=== PATIENT | male | born 1960 | race Caucasian/White ===

== ENCOUNTER → 2017-03-09 | Outpatient (CLI) | payer BC ==
[~2017-03-09] MED LIST: CHOL20009 PO; GLC/500 PO
--- NOTE | 2017-03-09 08:16 | DIAGNOSTIC IMAGING REPORT ---
KUB CLINICAL HISTORY: 56 years-old Male presenting with N20.0 [id number] Enlarged prostate without lower urina. TECHNIQUE: Single supine view of the abdomen was obtained. COMPARISON: 06/03/2016. FINDINGS: Unchanged appearance of the calculus projecting over the lower pole of the left kidney. Allowing for the presence of stool and bowel gas, no additional renal calculus is evident. No calcification along the course of the ureters or bladder. Unchanged distribution of small left pelvic phleboliths. Nonobstructive bowel gas pattern. No gross pneumoperitoneum. Lung bases clear. Degenerative changes of the spine. IMPRESSION: 1. Stable appearance of the left lower pole renal calculus. Electronically signed by: Claudio Garcia M.D. 03/09/2017 8:15 AM Dictated Date/Time: 03/09/2017 8:14 AM
== END | disposition home or self-care (01) ==
LOC: C.RAD 07:51
PROVIDERS: ATTEND Urology
DX: N40.0 Benign prostatic hyperplasia without lower urinary tract symptoms (principal); N20.0 Calculus of kidney

== ENCOUNTER 2019-12-04 08:19 | Observation (INO) ==
--- NOTE | 2019-11-30 10:39 | Anesthesiology Consultation ---
Date of Service November 30, 2019 Assessment & Plan (1) Encounter for pre-operative examination: COVID Status: As of 11/29 nurse assessment, patient denies travel to endemic area, known exposure/sick contacts, or symptoms of COVID19. Preoperative COVID19 testing completed on 11/28, results pending. S/P cyto/laser litho 11/06/19 -- iGel #5, no complications note on record. Chart Review Chart Review: Acceptable Risk for Surgery and Patient NOT seen in Pre Admission Testing History Surgery Operation Date: 12/04/19 10:15 Proposed Procedures p Cystoscopy, Left Retrograde Pyelogram, Ureteral Stent Removal, Possible Ureteroscopy, Biopsy - Diego Jordan, DO Height/Weight Height: 5 ft 7 in Weight: 124.738 kg Allergies Allergy/AdvReac Type Severity Reaction Status Date / Time No Known Allergies Allergy Verified 11/30/19 07:02 Medications Home Medications Medication Instructions Recorded Confirmed Last Taken tadalafil 5 mg tablet 5.5 mg PO UD PRN #30 tab 01/11/19 11/30/19 Unknown metformin 500 mg tablet 500 mg PO TID #270 tab 01/24/19 11/30/19 11/05/19 17:00 ascorbic acid (vitamin C) [Vitamin 500 mg PO DAILY 10/26/19 11/30/19 11/03/19 08:00 C] Past Medical History Medical History BPH (benign prostatic hyperplasia) Dyslipidemia per records Hx of gout Kidney stones Morbid obesity Osteoarthritis Prediabetes on Metformin, most recent hgba1c 5.2% 07/2019 Past Family History Family History Father Prostate cancer Family/Other Coronary heart disease Hodgkins disease Denies family history of Ovarian cancer Myocardial infarction Breast cancer Past Surgical History Surgical History History of colonoscopy History of lithotripsy History of tonsillectomy and adenoidectomy History of tooth extraction Social History Smoking Status: Former smoker tobacco type: cigarettes Smoking cigarettes per day: doesnt remember, less than 1ppd Do You Dip or Chew Tobacco: No Smoking End Date: ~1999 Hx Alcohol Use: Yes Alcohol type: beer, wine and hard liquor alcohol intake frequency: a few times a month Hx Substance Use: No substance use type: does not use Testing Laboratory Results 10/31/19 WBC: 8.80 H/H: 14.3/44.2 PLATELETS: 304 11/03/19 SODIUM: 139 POTASSIUM: 4.1 CHLORIDE: 108 CO2: 26 BUN: 13 CREATININE: 0.97 GLUCOSE: 102 Electrocardiogram Date: 10/31/19 Findings: + NSR @ (72bpm) Chest X-Ray Date: 10/31/19 Findings: + NAD
[~2019-12-04 08:19] MED LIST changes: -CHOL20009 PO; +CIPROFLOXACIN / D5W 400 MG/200 ML BAG IV SCH; -GLC/500 PO; +LR 15ML/HR IV SCH
--- NOTE | 2019-12-04 08:59 | History & Physical Bridge Note ---
Date of Service December 04, 2019 History & Physical Bridge Note I have examined the patient, reviewed the History & Physical and in the interval since the performance of the History & Physical I have noted the following changes of clinical significance: no changes noted
[2019-12-04] MEDS ORDERED: MIDAZOLAM HCL 1 MG/ML 2ML VIAL ONE (10:38)
[2019-12-04] MEDS ORDERED: fentaNYL citrate 100 MCG/2 ML VIAL ONE (10:38)
[2019-12-04] MEDS ORDERED: LIDOCAINE HCL 2% 2 ML VIAL/AMP(20MG/ML) INFIL ONE (10:38)
[2019-12-04] MEDS ORDERED: PROPOFOL IV EMULSION 10 MG/ML 20 ML VIAL IV ONE ×2 (10:38→11:41)
[2019-12-04] MEDS ORDERED: ONDANSETRON INJ 2 MG/ML 2 ML VIAL IV PRN (11:01)
[2019-12-04] MEDS ORDERED: ATROPINE SULFATE 0.1 MG/ML 10ML SYR IV PRN (11:01)
[2019-12-04] MEDS ORDERED: fentaNYL citrate 100 MCG/2 ML VIAL IV PRN (11:01)
[2019-12-04] MEDS ORDERED: ePHEDrine sulfate 50 MG/ML AMP IV PRN (11:01)
[2019-12-04] MEDS ORDERED: KETAMINE HCL INJ 50 MG/ML 10 ML VIAL ONE (11:18)
--- NOTE | 2019-12-04 11:47 | Operative Report ---
PG Post Operative Report Pre & Post Diagnosis Operation Date: 12/04/19 10:15 Pre-Op Diagnosis: Gross Hematuria, Nephrolithiasis Post-Op Diagnosis: Gross Hematuria, Nephrolithiasis I identified the patient and participated in the time-out.: Yes Procedure Operation Date: 12/04/19 10:15 Actual Procedures p Cystoscopy, Left Ureteral Stent Removal, KUB fluoroscopy, Bladder Biopsy, Fulguration of lesions, and fulguration of Prostatic Varicosities; Bladder Fulguration(Left) - Diego Jordan DO Surgeon Diego Jordan, II, DO Gas Attendant None Estimated Blood Loss 3 Findings Consistent with Post-Op Diagnosis Bladder lesions found and assessed. Bleeding controlled after biopsy. Stent removed. Severe bleeding varicosity of the prostate. Specimens Posterior wall. Left trigone Drains None Anesthesia Type MAC Complications none Disposition Disposition: Recovery Room Indications Patient with bladder lesions. Risks and benefits discussed at length. Description of Procedure Patient was consented and brought back to the operating room. Patient was placed under anesthesia in the supine position and moved to the dorsal lithotomy position. Patient was prepped and draped in the regular sterile fashion. A time out was completed. A 30 degree Cystoscope was placed into the bladder and the entire bladder was examined. The UO's were identified as well as the bladder neck, trigone, dome, and the other important landmarks. A KUB was completed without further stones. The stent was removed with out issues. The lesions/suspicious areas were identified and area size was assessed. The Cold cup biopsy forcep was selected and biopsies taken of the areas. Posterior wall and left trigone were biopsied. These appeared to be irritation and edema however were easily bleeding. The prostate was inflammed with large varicosity that were also easily bleeding. The dilated ureteral areas were mildly irritated but without injury. The biopsy bed and edges of the lesions were fulgurated and the entire area inspected. The larger and bleeding prostatic varicosities were fulgurated. All bleeding was controlled. The bladder was inspected a final time. The bladder was emptied. The scope was removed. The patient was cleaned, aroused from anesthesia, and transferred to the pacu in stable condition having tolerated the procedure well with no complications. I was present and participated in all aspects of the procedure. The patient will be monitored in the PACU until transferred. I attest to the content of the Intraoperative Record and any orders documented therein. Any exceptions are noted below.
--- NOTE | 2019-12-04 11:50 | Fluoroscopy Report ---
FL KUB CLINICAL HISTORY: CYSTO/LT RETROGRADE/STENT REMOVAL COMPARISON STUDY: None FLUOROSCOPY TIME: 9 seconds NUMBER OF FLUOROSCOPIC IMAGES: 1 FINDINGS: Image intensifier was utilized for stent removal IMPRESSION: Image intensifier was utilized for stent removal ACT 112: Negative or not required by law. The above report was generated using voice recognition software. It may contain grammatical, syntax or spelling errors. Electronically signed by: Venu Saucedo M.D. 12/04/2019 11:49 AM
--- NOTE | 2019-12-04 12:29 | Anesthesiology Progress Note ---
Date of Service December 04, 2019 Anesthesia Post Procedure Vital Signs Vital Signs: Temp Pulse Resp BP Pulse Ox 12/04/19 08:50 36.9 C 74 20 128/69 94 Transfer of Care Handoff Completed per policy Notes Mental Status: alert / awake / arousable Patient Amnestic to Procedure: Yes Nausea / Vomiting: adequately controlled Pain: adequately controlled Airway Patency, RR, SpO2: stable & adequate BP & HR: stable & adequate Hydration State: stable & adequate Anesthetic Complications: no major complications apparent
[2019-12-04] MEDS ORDERED: OXYCODONE/APAP 7.5/325MG TAB PO STA (12:58)
[2019-12-04] MEDS ORDERED: OXYCODONE/APAP 7.5/325MG TAB ONE (13:00)
[2019-12-04] MEDS ORDERED: TAMSULOSIN HCL 0.4 MG CAP PO ONE (13:15)
[2019-12-04] MEDS ORDERED: PHENAZOPYRIDINE HCL 200 MG TAB ONE (15:20)
[2019-12-04] MEDS ORDERED: PHENAZOPYRIDINE HCL 200 MG TAB PO STA (15:21)
[2019-12-04] MEDS ORDERED: IBUPROFEN 600 MG TAB PO PRN (18:40)
[2019-12-04] MEDS ORDERED: BELLADONNA/OPIUM SUPP 60 MG SUPP PR PRN (18:40)
[2019-12-04] MEDS ORDERED: TADALAFIL PO PRN (18:40)
[2019-12-04] MEDS ORDERED: ACETAMINOPHEN 325 MG TAB PO PRN (18:40)
[2019-12-04] MEDS ORDERED: OXYCODONE HCL IR 5 MG TAB (IMMEDIATE RELEASE) PO PRN (18:40)
[2019-12-04] MEDS: D5W AND 1/2NSS + 20MEQ KCL 20 MEQ/1,000 ML BAG IV SCH (19:27)
[2019-12-04] MEDS: CEFAZOLIN 2000MG 2,000 MG/15 ML SYR IV SCH (19:27)
[2019-12-05] MEDS: CEFAZOLIN 2000MG 2,000 MG/15 ML SYR IV SCH ×2 (04:24→13:11)
--- NOTE | 2019-12-05 07:51 | Anesthesiology Progress Note ---
Date of Service December 05, 2019 Anesthesia Post Procedure Vital Signs Vital Signs: Temp Pulse Resp BP BP Pulse Ox 12/05/19 06:57 36.6 C 87 17 122/73 95 12/05/19 04:25 36.4 C L 90 18 123/75 95 12/04/19 23:10 36.5 C 94 H 18 117/66 95 12/04/19 21:35 37.0 C 93 H 18 118/70 94 12/04/19 20:30 36.6 C 85 18 135/75 93 12/04/19 19:33 36.5 C 85 18 154/83 H 94 12/04/19 19:01 36.5 C 69 18 143/79 H 97 12/04/19 18:41 36.7 C 72 18 133/78 96 12/04/19 18:16 75 20 149/70 H 98 12/04/19 17:15 68 18 173/82 H 97 12/04/19 16:14 36.5 C 68 24 186/93 H 100 12/04/19 15:25 77 22 189/95 H 100 12/04/19 12:55 80 20 159/96 H 100 12/04/19 12:25 73 18 146/102 H 98 12/04/19 11:55 36.5 C 74 16 112/71 96 12/04/19 08:50 36.9 C 74 20 128/69 94 Pain Intensity Abdomen: Pain Intensity: 0 Notes Mental Status: alert / awake / arousable and participated in evaluation Patient Amnestic to Procedure: Yes Nausea / Vomiting: adequately controlled Pain: adequately controlled Airway Patency, RR, SpO2: stable & adequate BP & HR: stable & adequate Hydration State: stable & adequate Anesthetic Complications: no major complications apparent
[2019-12-05] MEDS: D5W AND 1/2NSS + 20MEQ KCL 20 MEQ/1,000 ML BAG IV SCH (08:06)
--- NOTE | 2019-12-05 08:11 | Urology Progress Note ---
Date of Service December 05, 2019 Assessment & Plan (1) Enlarged prostate without lower urinary tract symptoms (luts): Patient tolerating catheter without major issues or concerns. Patient to increase diet today. Increase activity. Likely will go home later this morning. Patient is otherwise doing well without major problems or concerns. Patient discussed extremely large prostate with large prostatic varicosities likely source of major bleeding. Patient had stones treated which had the stent removal at the same time without major problems or issues. Will await biopsy results. Will likely start on dual therapy and plan to monitor closely. Plan will be to have catheter removed likely on or Wednesday in the office. We will set this up through nursing. Subjective Postop observation after stent removal and biopsies and fulguration of large prostatic varicosities with gross hematuria and retention s. Patient has been tolerating well. Has noticed some frequency and urgency. Has not had severe pain in the back and flank. Does have occasional burning and irritation. No severe episodes or major changes. No new nausea or vomiting. Had tolerated anesthesia without major problems. Increased activity today. No other major changes or issues. Had tolerated diet. Review of Systems Review of Systems: All systems reviewed & are unremarkable except as noted in HPI & below Physical Exam Physical Exam: General: Alert in no acute distress. HEENT: Normocephalic Atraumatic. Inspection normal. Cranial Nerves 2-12 Grossly intact. Normal inspection of face. Normal inspection of neck. Psychologic: Normal affect. Respiratory: Nonlabored. No use of accessory muscles. No tachypnea or dyspnea. Cardiovascular: No tachycardia Skin: Cornelius and Dry. No rashes or visible lesions. Extremities/Lymphatics: No edema Abdomen: Soft Non-distended. No rebound or guarding. Obese. : Dark red urine without clots in catheter bag Results & Data Vital Signs (Past 12 Hours) Vital Signs Temp Pulse Resp BP BP Pulse Ox 12/05/19 06:57 36.6 C 87 17 122/73 95 12/05/19 04:25 36.4 C L 90 18 123/75 95 12/04/19 23:10 36.5 C 94 H 18 117/66 95 12/04/19 21:35 37.0 C 93 H 18 118/70 94 12/04/19 20:30 36.6 C 85 18 135/75 93 PG Care Time/CCT Total # of Minutes Spent Total Time Spent with Patient: Total time spent is greater than 50% in coordination of care (as documented) at patient's floor/unit and/or counseling patient: Coding Level of Care Code 51080 Subseq Hosp Care Lvl 3 Diagnoses Enlarged prostate without lower urinary tract symptoms (luts) N40.0
[2019-12-05] MEDS: METFORMIN HCL 500 MG TAB PO SCH ×2 (08:38→13:11)
[2019-12-05] MEDS ORDERED: ASCORBIC ACID 500 MG TAB PO SCH (09:00)
--- NOTE | 2019-12-06 07:43 | Discharge Summary ---
Date of Service December 06, 2019 Admission HPI Per Admitting Provider See H&P Admission Exam Per Admitting Provider See H&P Principal Diagnosis UPJ Stone Discharge Exam General: Alert in no acute distress. HEENT: Normocephalic Atraumatic. Inspection normal. Psychologic: Normal affect. Skin: [place] and Dry. No rashes or visible lesions. Abdomen: Soft Non-distended. No rebound or guarding. Discharge Data Allergies Allergy/AdvReac Type Severity Reaction Status Date / Time No Known Allergies Allergy Verified 12/04/19 08:44 Procedures Performed Operation Date: 12/04/19 10:15 Actual Procedures p Cystoscopy, Left Ureteral Stent Removal,(Left) - DO erickson Caro Fulgartion of Proststatic Varicosities; - DO erickson Caro Bladder Biopsy, Bladder Fulguration - Diego Jordan DO Ordered Studies 12/04/19 10:15 FL KUB Routine 12/04/19 11:42 FL fluoroscopy <1hr Routine Hospital Course (1) Enlarged prostate without lower urinary tract symptoms (luts): Patient tolerating catheter without major issues or concerns. Patient to increase diet today. Increase activity. Likely will go home later this morning. Patient is otherwise doing well without major problems or concerns. Patient discussed extremely large prostate with large prostatic varicosities likely source of major bleeding. Patient had stones treated which had the stent removal at the same time without major problems or issues. Will await biopsy results. Will likely start on dual therapy and plan to monitor closely. Plan will be to have catheter removed likely on or Wednesday in the office. We will set this up through nursing. Total Time Total Time Spent Total Time Spent (In Minutes): 10 minutes Total Time Includes: Examination of the Patient, Discharge Planning, Medication Reconciliation and Communication With Other Providers Discharge Plan Discharge Items Patient Disposition: Home - Self-Care Reason For Visit: Hematuria, UPJ Stone Discharge Diagnosis: Same Activity: Resume your previous activity Lifting: No more than 50 pounds Non-emergency contact: Urologist Call non-emergency contact if: you have any medication questions, your symptoms worsen, your pain is not controlled, your pain is worsening, your pain is unusual for you, your pain is concerning for you, you have a fever and your temperature is above 101.5 Follow-up/Referrals: Lena Oliveira MD [Primary Care Provider] - Diego Jordan DO [Physician] - 12/08/19 10:40 am Diet: Regular Addtl Attending Provider Instructions: May have blood in urine. May have discomfort. Pending Studies at Discharge: No Stand-Alone Forms: Anesthesia/Sedation, Adult, My [facility], Work/School Release (Inpt) Medications and DC Order Prescriptions: New ciprofloxacin HCl [Cipro] 500 mg tablet 500 mg PO Q12H Qty: 6 RF: 0 tamsulosin 0.4 mg capsule 0.4 mg PO HS Qty: 30 RF: 0 Continued metformin 500 mg tablet 500 mg PO TID Qty: 270 RF: 3 tadalafil 5 mg tablet 5.5 mg PO UD PRN (Reason: .) Qty: 30 RF: 0 ascorbic acid (vitamin C) [Vitamin C] 500 mg Tablet 500 mg PO DAILY RF: 0 Discharge Orders: Discharge Order (Routine); Ordered 12/05/19 Ordered By: Diego Berger/Other Patient Handouts: DVT Post Op Prevention, Emptying and Cleaning Your Urinary Catheter Bag, Discharge Instructions Caring for Your Leg Bag Admission Data Admit Date/Time: 12/04/19 17:28 Attending Provider: Diego Jordan Admit Provider: Diego Jordan Primary Care Provider: Lena Oliveira Other Interventions: Discharge Summary Assessment (RN) Last Done: 12/05/19 13:16 DC Date/Time DO NOT enter until pt leaves facility: 12/05/19 14:02 Coding Level of Care Code D/C Day Management <30 mins Diagnoses Enlarged prostate without lower urinary tract symptoms (luts) N40.0
== END 2019-12-05 14:02 | disposition home or self-care (01) ==
LOC: ASU 08:19 → 3E 08:19